=== PATIENT | female | born 1960 | race Two or more races ===

== ENCOUNTER 2024-09-17 12:20 | Emergency (ER) | payer OTHER ==
[~2024-09-17] VITALS: Ht 152.4 cm; Wt 79.4 kg
[2024-09-17] MEDS ORDERED: HYDROCHLOROTHIA25 MG PO (12:48)
[2024-09-17] MEDS ORDERED: COZAAR50 MG PO (12:48)
[2024-09-17] MEDS ORDERED: 0.9 % SODIUM CHLORIDE 1,000 ML IV STA (14:52)
[2024-09-17] MEDS ORDERED: MECLIZINE HCL 25 MG TABLET PO STA (14:53)
[2024-09-17 15:38] LABS: BASO % 1.0 % (0.1-1.2); EOS # 0.05 (0.04-0.54); EOS % 0.7 % (0.7-7.0); LYMPH # 1.67 (1.18-3.74); LYMPH % 24.0 % (19.3-53.1); MEAN PLATELET VOLUME 9.10 fl (9.4-12.4); MONO # 0.37 (0.24-0.82); MONO % 5.3 % (4.7-12.5); NEUT # 4.78 (1.56-6.13); NEUT % 68.7 % (34.0-71.1); RED CELL DISTRIBUTION WIDTH 13.1 % (11.6-14.4)
[2024-09-17 16:17] LABS: INR 1.01
[2024-09-17 16:23] LABS: ALT/SGPT 23.0 U/L (12-78); AST/SGOT 21.0 U/L (15-37); BILIRUBIN TOTAL 1.03 mg/dL (0.3-1.2); BUN CREA RATIO 20.0 (7.0-25.0); CREATININE SERUM 0.64 mg/dL (0.55-1.02); GFR 93.72; GLOBULINA 4.9 G/DL (2.4-3.5); GLUCOSE FASTING 92.0 mg/dL (65-100); OSMOLALITY SERUM 285.0 MOSM/KG (275-295)
== END 2024-09-17 17:10 | disposition home or self-care (01) ==
LOC: ER 12:20
DX: R41.82 Altered mental status, unspecified (principal); I10 Essential (primary) hypertension; H81.10 Benign paroxysmal vertigo, unspecified ear